=== PATIENT | female | born 1935 | race Two or more races ===

== ENCOUNTER → 2022-01-28 | Outpatient (CLI) | payer MEDICARE, OTHER ==
[~2022-01-28] MED LIST: COLLAGENASE 5 GM TUBE UD TP ONE; GENTAMICIN 0.1% CREAM 15 GM TUBE ONE; LIDOCAINE SOLN 4% 50 ML BOTTLE ONE
== END | disposition home health service (06) ==
LOC: WOU 10:10
PROVIDERS: ATTEND Podiatrist Foot & Ankle Surgery
DX: I87.312 Chronic venous hypertension (idiopathic) with ulcer of left lower extremity (principal); L97.222 Non-pressure chronic ulcer of left calf with fat layer exposed; I87.2 Venous insufficiency (chronic) (peripheral); I89.0 Lymphedema, not elsewhere classified; L08.9 Local infection of the skin and subcutaneous tissue, unspecified; B96.5 Pseudomonas (aeruginosa) (mallei) (pseudomallei) as the cause of diseases classified elsewhere; B95.4 Other streptococcus as the cause of diseases classified elsewhere; Z79.01 Long term (current) use of anticoagulants
CPT/HCPCS: 11043; 11042; 11045; 11046; J7040

== ENCOUNTER → 2022-02-04 | Outpatient (CLI) | payer MEDICARE, OTHER | END | disposition home health service (06) | LOC: WOU 10:10 | PROVIDERS: ATTEND Podiatrist Foot & Ankle Surgery | DX: I87.312 Chronic venous hypertension (idiopathic) with ulcer of left lower extremity (principal); L97.222 Non-pressure chronic ulcer of left calf with fat layer exposed; I87.2 Venous insufficiency (chronic) (peripheral); I89.0 Lymphedema, not elsewhere classified; I10 Essential (primary) hypertension; Z79.01 Long term (current) use of anticoagulants | CPT/HCPCS: 11043; 11042; J7040 ==

== ENCOUNTER 2022-02-15 10:20 | Outpatient (CLI) | payer MEDICARE, OTHER ==
[2022-02-15] MEDS ORDERED: LIDOCAINE SOLN 4% 50 ML BOTTLE ONE (10:31)
[2022-02-15] MEDS ORDERED: COLLAGENASE 5 GM TUBE UD TP ONE (11:01)
== END 2022-02-15 23:59 | disposition home health service (06) ==
LOC: WOU 10:20
PROVIDERS: ATTEND Podiatrist Foot & Ankle Surgery
DX: I87.312 Chronic venous hypertension (idiopathic) with ulcer of left lower extremity (principal); L97.222 Non-pressure chronic ulcer of left calf with fat layer exposed; I87.2 Venous insufficiency (chronic) (peripheral); I89.0 Lymphedema, not elsewhere classified; Z79.01 Long term (current) use of anticoagulants
CPT/HCPCS: 11043; 11042; 11045; J7040; A6207

== ENCOUNTER 2022-02-22 10:40 | Outpatient (CLI) | payer MEDICARE, OTHER ==
[2022-02-22] MEDS ORDERED: COLLAGENASE 5 GM TUBE UD TP ONE (11:30)
== END 2022-02-22 23:59 | disposition home health service (06) ==
LOC: WOU 10:40
PROVIDERS: ATTEND Podiatrist Foot & Ankle Surgery
DX: I87.312 Chronic venous hypertension (idiopathic) with ulcer of left lower extremity (principal); L97.222 Non-pressure chronic ulcer of left calf with fat layer exposed; L97.223 Non-pressure chronic ulcer of left calf with necrosis of muscle; I89.0 Lymphedema, not elsewhere classified; I87.2 Venous insufficiency (chronic) (peripheral); Z79.01 Long term (current) use of anticoagulants
CPT/HCPCS: 11043; 11042; 11045; J7040; A6402

== ENCOUNTER 2022-03-01 10:15 | Outpatient (CLI) | payer MEDICARE, OTHER ==
[2022-03-01] MEDS ORDERED: LIDOCAINE SOLN 4% 50 ML BOTTLE ONE (10:28)
[2022-03-01] MEDS ORDERED: COLLAGENASE 5 GM TUBE UD TP ONE (11:06)
== END 2022-03-01 23:59 | disposition home or self-care (01) ==
LOC: WOU 10:15
PROVIDERS: ATTEND Podiatrist Foot & Ankle Surgery
DX: I87.312 Chronic venous hypertension (idiopathic) with ulcer of left lower extremity (principal); L97.222 Non-pressure chronic ulcer of left calf with fat layer exposed; L97.223 Non-pressure chronic ulcer of left calf with necrosis of muscle; I89.0 Lymphedema, not elsewhere classified; F41.9 Anxiety disorder, unspecified; M19.90 Unspecified osteoarthritis, unspecified site
CPT/HCPCS: 11043; 11042; 11045; J7040

== ENCOUNTER 2022-03-11 10:20 | Outpatient (CLI) | payer MEDICARE, OTHER ==
[2022-03-11] MEDS ORDERED: LIDOCAINE SOLN 4% 50 ML BOTTLE ONE (10:32)
[2022-03-11] MEDS ORDERED: COLLAGENASE 5 GM TUBE UD TP ONE (11:02)
== END 2022-03-11 23:59 | disposition home health service (06) ==
LOC: WOU 10:20
PROVIDERS: ATTEND Podiatrist Foot & Ankle Surgery
DX: I87.312 Chronic venous hypertension (idiopathic) with ulcer of left lower extremity (principal); L97.222 Non-pressure chronic ulcer of left calf with fat layer exposed; Z79.01 Long term (current) use of anticoagulants; Z79.899 Other long term (current) drug therapy; I48.91 Unspecified atrial fibrillation; I89.0 Lymphedema, not elsewhere classified; I10 Essential (primary) hypertension; Z86.73 Personal history of transient ischemic attack (TIA), and cerebral infarction without residual deficits; M19.09 Primary osteoarthritis, other specified site
CPT/HCPCS: 11042; 11045; J7040

== ENCOUNTER → 2022-03-22 | Outpatient (CLI) | payer MEDICARE, OTHER ==
[~2022-03-22] MED LIST changes: -GENTAMICIN 0.1% CREAM 15 GM TUBE ONE
== END | disposition home health service (06) ==
LOC: WOU 10:05
PROVIDERS: ATTEND Podiatrist Foot & Ankle Surgery
DX: I87.312 Chronic venous hypertension (idiopathic) with ulcer of left lower extremity (principal); L97.222 Non-pressure chronic ulcer of left calf with fat layer exposed; L97.225 Non-pressure chronic ulcer of left calf with muscle involvement without evidence of necrosis; I89.0 Lymphedema, not elsewhere classified; I87.2 Venous insufficiency (chronic) (peripheral); I10 Essential (primary) hypertension; Z79.01 Long term (current) use of anticoagulants; M19.90 Unspecified osteoarthritis, unspecified site
CPT/HCPCS: 11043; 11042; 11045; J7040

== ENCOUNTER 2022-03-29 10:06 | Outpatient (CLI) | payer MEDICARE, OTHER ==
[2022-03-29] MEDS ORDERED: LIDOCAINE SOLN 4% 50 ML BOTTLE ONE (10:22)
[2022-03-29] MEDS ORDERED: BENZOIN COMPOUND TINCT 60 ML BOTTLE ONE (10:58)
[2022-03-29] MEDS ORDERED: COLLAGENASE 5 GM TUBE UD TP ONE (11:08)
== END 2022-03-29 23:59 | disposition home health service (06) ==
LOC: WOU 10:06
PROVIDERS: ATTEND Podiatrist Foot & Ankle Surgery
DX: I87.312 Chronic venous hypertension (idiopathic) with ulcer of left lower extremity (principal); L97.222 Non-pressure chronic ulcer of left calf with fat layer exposed; L97.223 Non-pressure chronic ulcer of left calf with necrosis of muscle; I89.0 Lymphedema, not elsewhere classified; I87.2 Venous insufficiency (chronic) (peripheral)
CPT/HCPCS: 11043; 11042; 11045; J7040

== ENCOUNTER 2022-04-05 10:05 | Outpatient (CLI) | payer MEDICARE, OTHER ==
[2022-04-05] MEDS ORDERED: LIDOCAINE SOLN 4% 50 ML BOTTLE ONE (10:25)
[2022-04-05] MEDS ORDERED: Z GUARD REMEDY 2 OZ OINT TP ONE (11:22)
[2022-04-05] MEDS ORDERED: COLLAGENASE 5 GM TUBE UD TP ONE (11:23)
[2022-04-05] MEDS ORDERED: SILVER SULFADIAZINE CREAM 25 GM TUBE ONE (11:27)
== END 2022-04-05 23:59 | disposition home health service (06) ==
LOC: WOU 10:05
PROVIDERS: ATTEND Podiatrist Foot & Ankle Surgery
DX: I87.312 Chronic venous hypertension (idiopathic) with ulcer of left lower extremity (principal); L97.822 Non-pressure chronic ulcer of other part of left lower leg with fat layer exposed; L97.825 Non-pressure chronic ulcer of other part of left lower leg with muscle involvement without evidence of necrosis; I10 Essential (primary) hypertension; Z86.73 Personal history of transient ischemic attack (TIA), and cerebral infarction without residual deficits
CPT/HCPCS: 11042; 11045; C5271; Q4117 ×2; J7040; A6402; A6207

== ENCOUNTER 2022-04-13 13:05 | Outpatient (CLI) | payer MEDICARE, OTHER ==
[2022-04-13] MEDS ORDERED: LIDOCAINE SOLN 4% 50 ML BOTTLE ONE (13:10)
[2022-04-13] MEDS ORDERED: Z GUARD REMEDY 2 OZ OINT TP ONE (13:56)
== END 2022-04-13 23:59 | disposition home health service (06) ==
LOC: WOU 13:05
PROVIDERS: ATTEND Podiatrist Foot & Ankle Surgery
DX: I87.312 Chronic venous hypertension (idiopathic) with ulcer of left lower extremity (principal); L97.222 Non-pressure chronic ulcer of left calf with fat layer exposed; L97.225 Non-pressure chronic ulcer of left calf with muscle involvement without evidence of necrosis; I89.0 Lymphedema, not elsewhere classified; I87.2 Venous insufficiency (chronic) (peripheral); Z79.01 Long term (current) use of anticoagulants; Z79.899 Other long term (current) drug therapy
CPT/HCPCS: 11043; 11042; 11045; J7040

== ENCOUNTER 2022-04-20 13:25 | Outpatient (CLI) | payer MEDICARE, OTHER ==
[2022-04-20] MEDS ORDERED: LIDOCAINE SOLN 4% 50 ML BOTTLE ONE ×2 (13:54→14:31)
[2022-04-20] MEDS ORDERED: Z GUARD REMEDY 2 OZ OINT TP ONE (15:00)
== END 2022-04-20 23:59 | disposition home health service (06) ==
LOC: WOU 13:25
PROVIDERS: ATTEND Podiatrist Foot & Ankle Surgery
DX: I87.312 Chronic venous hypertension (idiopathic) with ulcer of left lower extremity (principal); L97.222 Non-pressure chronic ulcer of left calf with fat layer exposed; L97.223 Non-pressure chronic ulcer of left calf with necrosis of muscle; I87.2 Venous insufficiency (chronic) (peripheral); I89.0 Lymphedema, not elsewhere classified; Z79.01 Long term (current) use of anticoagulants
CPT/HCPCS: 11043; 11042; 11045; 11046; J7040

== ENCOUNTER 2022-04-29 10:25 | Outpatient (CLI) | payer MEDICARE, OTHER ==
[~2022-04-29 10:25] MED LIST changes: -COLLAGENASE 5 GM TUBE UD TP ONE
[2022-04-29] MEDS ORDERED: GENTAMICIN 0.1% CREAM 15 GM TUBE ONE (11:29)
[2022-04-29] MEDS ORDERED: Z GUARD REMEDY 4 OZ OINT TP ONE (11:31)
== END 2022-04-29 23:59 | disposition home health service (06) ==
LOC: WOU 10:25
PROVIDERS: ATTEND Podiatrist Foot & Ankle Surgery
DX: I87.312 Chronic venous hypertension (idiopathic) with ulcer of left lower extremity (principal); L97.222 Non-pressure chronic ulcer of left calf with fat layer exposed; L97.225 Non-pressure chronic ulcer of left calf with muscle involvement without evidence of necrosis; I89.0 Lymphedema, not elsewhere classified; I87.2 Venous insufficiency (chronic) (peripheral); I10 Essential (primary) hypertension; Z79.01 Long term (current) use of anticoagulants
CPT/HCPCS: 11042; 11045; J7040; A6402; A6207

== ENCOUNTER 2022-05-06 10:00 | Outpatient (CLI) | payer MEDICARE, OTHER ==
[2022-05-06] MEDS ORDERED: DAKINS HALF STRENGTH (0.25%) 480 ML BOTTLE ONE (10:38)
[2022-05-06] MEDS ORDERED: LIDOCAINE SOLN 4% 50 ML BOTTLE ONE (10:38)
[2022-05-06] MEDS ORDERED: ETHYL CHLORIDE SPRAY 1 EA BOTTLE TP ONE (11:00)
[2022-05-06] MEDS ORDERED: Z GUARD REMEDY 4 OZ OINT TP ONE (11:12)
[2022-05-06] MEDS ORDERED: BENZOIN COMPOUND TINCT 60 ML BOTTLE ONE (11:14)
== END 2022-05-06 23:59 | disposition home health service (06) ==
LOC: WOU 10:00
PROVIDERS: ATTEND Podiatrist Foot & Ankle Surgery
DX: I87.312 Chronic venous hypertension (idiopathic) with ulcer of left lower extremity (principal); L97.222 Non-pressure chronic ulcer of left calf with fat layer exposed; L97.223 Non-pressure chronic ulcer of left calf with necrosis of muscle; I87.2 Venous insufficiency (chronic) (peripheral); I89.0 Lymphedema, not elsewhere classified; Z79.01 Long term (current) use of anticoagulants
CPT/HCPCS: 11043; 11042; 11045; 11046; J7040; A6402; A6207

== ENCOUNTER 2022-05-20 10:42 | Outpatient (CLI) | payer MEDICARE, OTHER ==
[2022-05-20] MEDS ORDERED: LIDOCAINE SOLN 4% 50 ML BOTTLE ONE ×2 (10:55→11:22)
[2022-05-20] MEDS ORDERED: GENTAMICIN 0.1% CREAM 15 GM TUBE ONE (11:38)
== END 2022-05-20 23:59 | disposition home health service (06) ==
LOC: WOU 10:42
PROVIDERS: ATTEND Podiatrist Foot & Ankle Surgery
DX: I87.312 Chronic venous hypertension (idiopathic) with ulcer of left lower extremity (principal); L97.222 Non-pressure chronic ulcer of left calf with fat layer exposed; L97.223 Non-pressure chronic ulcer of left calf with necrosis of muscle; I89.0 Lymphedema, not elsewhere classified; I87.2 Venous insufficiency (chronic) (peripheral); I10 Essential (primary) hypertension; Z79.01 Long term (current) use of anticoagulants
CPT/HCPCS: 87077; 87075; 87070; 87186 ×3; G0463; A6207; J7040

== ENCOUNTER 2022-05-31 10:26 | Outpatient (CLI) | payer MEDICARE, OTHER ==
[2022-05-31] MEDS ORDERED: GENTAMICIN 0.1% CREAM 15 GM TUBE ONE (11:27)
[2022-05-31] MEDS ORDERED: Z GUARD REMEDY 4 OZ OINT TP ONE (11:41)
== END 2022-05-31 23:59 | disposition home health service (06) ==
LOC: WOU 10:26
PROVIDERS: ATTEND Podiatrist Foot & Ankle Surgery
DX: I87.312 Chronic venous hypertension (idiopathic) with ulcer of left lower extremity (principal); L97.222 Non-pressure chronic ulcer of left calf with fat layer exposed; L97.223 Non-pressure chronic ulcer of left calf with necrosis of muscle; I89.0 Lymphedema, not elsewhere classified; I87.2 Venous insufficiency (chronic) (peripheral); Z79.01 Long term (current) use of anticoagulants
CPT/HCPCS: 11042; 11045

== ENCOUNTER 2022-06-24 10:30 | Outpatient (CLI) | payer MEDICARE, OTHER ==
[2022-06-24] MEDS ORDERED: LIDOCAINE SOLN 4% 50 ML BOTTLE ONE (10:44)
[2022-06-24] MEDS ORDERED: Z GUARD REMEDY 4 OZ OINT TP ONE (11:18)
== END 2022-06-24 23:59 | disposition home health service (06) ==
LOC: WOU 10:30
PROVIDERS: ATTEND Podiatrist Foot & Ankle Surgery
DX: I87.312 Chronic venous hypertension (idiopathic) with ulcer of left lower extremity (principal); L97.822 Non-pressure chronic ulcer of other part of left lower leg with fat layer exposed; L03.116 Cellulitis of left lower limb; I89.0 Lymphedema, not elsewhere classified; I87.2 Venous insufficiency (chronic) (peripheral); I10 Essential (primary) hypertension; Z79.01 Long term (current) use of anticoagulants
CPT/HCPCS: 29580; A6197 ×2